=== PATIENT | female | born 1950 | race Two or more races ===

== ENCOUNTER 2024-08-31 13:52 | Emergency (ER) | payer OTHER ==
[~2024-08-31] VITALS: Ht 162.6 cm; Wt 64.9 kg
[2024-08-31] MEDS ORDERED: ROSUVASTATIN CA40 MG PO (14:03)
[2024-08-31] MEDS ORDERED: PEPCID AC20 MG PO (14:04)
[2024-08-31] MEDS ORDERED: METFORMIN HCL500 M4 PO (14:04)
[2024-08-31 14:05] VITALS: BP 118/62; O2SAT 98
[2024-08-31] MEDS ORDERED: 0.9 % SODIUM CHLORIDE 500 ML IV ONE (16:30)
[2024-08-31] MEDS ORDERED: LACTOBACILLUS ACIDOPHILUS 1 CAP CAP PO ONE (16:30)
[2024-08-31] MEDS ORDERED: FAMOTIDINE/PF 20 MG/2 ML VIAL IV ONE (16:30)
[2024-08-31 17:15] LABS: HEMATOCRIT 38.7 % (36.0-45.00); HEMOGLOBIN 12.9 g/dL (12.0-15.00); MEAN CELL VOLUME 88.6 fL (80.00-100.00); MEAN CORPUSCULAR HEMOGLOBIN 29.6 pg (27.00-32.0); MEAN CORPUSCULAR HGB CONC 33.4 g/dl (32.0-36.0); PLATELET COUNT 399 K/uL (150-450); RED BLOOD COUNT 4.37 M/uL (4.00-6.00); RED CELL DISTRIBUTION WIDTH 14.5 % (11.5-14.5)
[2024-08-31 17:47] LABS: ALBUMIN 3.9 gm/dL (3.4-5.0); BILIRUBIN TOTAL 0.31 mg/dL (0.3-1.2); CALCIUM 9.7 mg/dL (8.5-10.1); CREATININE SERUM 0.68 mg/dL (0.55-1.02); GFR 84.35; GLOBULINA 3.4 G/DL (2.4-3.5); POTASSIUM 4.46 mEq/L (3.5-5.1); TOTAL PROTEIN 7.3 gm/dL (6.4-8.2)
[2024-08-31 17:54] LABS: PH,URINE 5.5 (5.0-8.0); URINE APPEARANCE Cloudy; URINE BILIRRUBIN Negative (NEGATIVE); URINE BLOOD Negative; URINE COLOR Yellow; URINE GLUCOSE Negative (NEGATIVE); URINE KETONE Negative (NEGATIVE); URINE LEUKOCYTE Small; URINE NITRATE Negative; URINE PROTEIN Trace (NEGATIVE); URINE UROBILINOGEN 0.2 E.U./dl
[2024-08-31 17:58] LABS: URINE BACTERIA 49.1 uL (0.0-1933); URINE EPITHELIAL CELLS 13.9 uL (0.0-38.8); URINE RBC 49.3 uL (0.0-20.8); URINE WBC 76.2 uL (0.0-23.2)
[2024-08-31 18:16] LABS: URINE CAST 0.61 uL (0.0-1.40)
== END 2024-08-31 22:17 ==
LOC: ER 13:54
PROVIDERS: Nurse Practitioner Family
DX: A08.39 Other viral enteritis (principal); E11.9 Type 2 diabetes mellitus without complications; Z79.84 Long term (current) use of oral hypoglycemic drugs; I10 Essential (primary) hypertension; Z20.822 Contact with and (suspected) exposure to COVID-19; K57.30 Diverticulosis of large intestine without perforation or abscess without bleeding; I88.9 Nonspecific lymphadenitis, unspecified; I70.90 Unspecified atherosclerosis; K42.9 Umbilical hernia without obstruction or gangrene
CPT/HCPCS: 36415; 74176; 96365; 96366; 99284; J3490